=== PATIENT | male | born 1970 | race Caucasian/White ===

== ENCOUNTER 2018-11-06 15:12 | Emergency (ER) | payer MEDICARE, MEDICAID ==
[2018-11-06 15:50] VITALS: BP 114/70
[2018-11-06] MEDS ORDERED: Ibuprofen TAB* 600 MG PO ONE (16:25)
--- NOTE | 2018-11-06 16:31 | UC ---
Lower Extremity/Ankle HPI - HPI Summary HPI Summary: 48-year-old male comes in with chief complaint of the bottoms of both of his feet hurting for one month. Pain is worse when he ambulates it's better when he rests. He has taken some [id number] medications with which does help decrease the pain. Patient denies any trauma. Been feeling well otherwise. Does not have diabetes. - History of Current Complaint Chief Complaint: UCLowerExtremity Stated Complaint: SOLE OF FEET HURT AND BURN Time Seen by Provider: 11/06/18 16:17 Pain Intensity: 9 - Allergies/Home Medications Allergies/Adverse Reactions: Allergies Allergy/AdvReac Type Severity Reaction Status Date / Time No Known Allergies Allergy Verified 11/06/18 15:44 Home Medications: Home Medications Cholesterol Med 1 tab DAILY 11/06/18 [History Confirmed 11/06/18] Ranitidine TAB (NF) [Zantac TAB (NF)] 1 tab QPM 11/06/18 [History Confirmed 04/19] PMH/Surg Hx/FS Hx/Imm Hx Previously Healthy: Yes - Surgical History Surgical History: None - Family History Known Family History: Positive: Non-Contributory - Social History Alcohol Use: None Substance Use Type: None Smoking Status (MU): Never Smoked Tobacco Review of Systems All Other Systems Reviewed And Are Negative: Yes Constitutional: Positive: Negative Skin: Positive: Negative Eyes: Positive: Negative ENT: Positive: Negative Respiratory: Positive: Negative Cardiovascular: Positive: Negative Gastrointestinal: Positive: Negative Motor: Positive: Negative Neurovascular: Positive: Negative Musculoskeletal: Positive: Other: - SEE HPI Neurological: Positive: Negative Psychological: Positive: Negative Is Patient Immunocompromised?: No Physical Exam Triage Information Reviewed: Yes Appearance: Well-Appearing, No Pain Distress, Well-Nourished Vital Signs: Initial Vital Signs Temp 98.4 F 11/06/18 15:46 Pulse 76 11/06/18 15:46 Resp 16 11/06/18 15:46 BP 114/70 11/06/18 15:46 Pulse Ox 97 11/06/18 15:46 Vital Signs Reviewed: Yes Eye Exam: Normal Eyes: Positive: Conjunctiva Clear Neck exam: Normal Neck: Positive: Supple Respiratory: Positive: No respiratory distress Musculoskeletal: Positive: Other: - Patient is tender to palpation on the bottoms of both his feet primarily throughout the arch. Ankle is nontender the dorsum is nontender positive dorsalis pedis pulses. Normal capillary refill no sensation deficits. Achilles tendon is nontender and intact. No skin break no erythema. Neurological Exam: Normal Neurological: Positive: Alert, Muscle Tone Normal Psychological Exam: Normal Psychological: Positive: Normal Response To Family, Age Appropriate Behavior Skin Exam: Normal Lower Extremity Course/Dx - Course Course Of Treatment: Patient Name: JUAN LUIS ALARCON Medical Record#: [id number]. Ordering Physician: Juancarlos Montanez MD Acct.#: [id number]. : 1970 Age: 48 Sex: M Location: [facility] Exam Date: 11/06/18 1625 ADM Status: REG ER. Order Information: FEET BILATERAL. Accession Number: [id number]. CPT: 88368. INDICATION: Pain bottoms of both feet. TECHNIQUE: 3 views of both feet were obtained. FINDINGS: The bones are in normal alignment. No fracture is seen. Joint spaces appear. maintained. IMPRESSION: NO EVIDENCE FOR FRACTURE. I discussed the x-ray reports with the patient and his family. I gave the patient the up-to-date information for patient's handout for plantar fascitis. We discussed anti-inflammatories icing heart supports and follow-up with primary care physician or podiatry. - Differential Dx/Diagnosis Provider Diagnosis: Plantar fasciitis, bilateral Discharge - Sign-Out/Discharge Documenting (check all that apply): Patient Departure All imaging exams completed and their final reports reviewed: Yes - Discharge Plan Condition: Stable Disposition: HOME Prescriptions: Ibuprofen TAB* [Motrin TAB* 600 MG] 600 mg PO Q6H PRN #30 tab PRN Reason: Pain Patient Education Materials: Plantar Fasciitis (ED), Plantar Fasciitis Exercises (ED) Referrals: Lisa Hernández PA [Primary Care Provider] - Additional Instructions: FOLLOW UP WITH YOUR PRIMARY CARE DOCTOR OR PODIATRY IF NOT COMPLETELY IMPROVED. GET RECHECKED FOR ANY WORSENING OF YOUR CONDITION OR QUESTIONS OR CONCERNS. - Billing Disposition and Condition Condition: STABLE Disposition: Home
== END 2018-11-06 17:17 | disposition home or self-care (01) ==
LOC: UCCORT 15:12
DX: M72.2 Plantar fascial fibromatosis (principal)
CPT/HCPCS: 99202; A9270-GY; G0463